=== PATIENT | male | born 1990 | race Caucasian/White ===

== ENCOUNTER 2018-07-16 21:24 | Emergency (ER) | payer BC ==
[~2018-07-16] VITALS: Ht 177.8 cm; Wt 117.7 kg
[2018-07-16 21:30] VITALS: Ht 177.8 cm; Wt 117.7 kg
[2018-07-16 22:46] VITALS: BP 131/87
[2018-07-17 00:17] VITALS: BP 116/54
[2018-07-17 01:00] VITALS: BP 126/72
[2018-07-17 01:31] VITALS: BP 128/71
== END 2018-07-17 01:25 | disposition home or self-care (01) ==
LOC: D.ER 21:24 → D.EDHOLD 07-18 12:47 → D.SDCHOLD 07-18 13:21 → D.EDHOLD 07-18 13:21
DX: S43.004A Unspecified dislocation of right shoulder joint, initial encounter (principal); Y93.83 Activity, rough housing and horseplay; Y92.019 Unspecified place in single-family (private) house as the place of occurrence of the external cause; F17.200 Nicotine dependence, unspecified, uncomplicated